=== PATIENT | female | born 1965 | race Caucasian/White ===

== ENCOUNTER 2016-07-16 23:07 | Emergency (ER) | payer MEDICAID ==
[~2016-07-16] VITALS: Ht 177.8 cm; Wt 61.7 kg
[2016-07-16 23:18] VITALS: BP 122/65
== END 2016-07-17 00:47 | disposition left against medical advice (07) ==
LOC: EDBD 23:07 → ER 23:09
DX: R10.11 Right upper quadrant pain (principal); R11.2 Nausea with vomiting, unspecified; Z53.21 Procedure and treatment not carried out due to patient leaving prior to being seen by health care provider